=== PATIENT | male | born 1950 | race Caucasian/White ===

== ENCOUNTER 2024-03-29 09:35 | Outpatient (REF) | payer MEDICARE, SELFPAY ==
--- NOTE | ~2024-03-29 | US_ITS ---
EXAMINATION: US ABDOMEN LIMITED CLINICAL INFORMATION: Abdominal bulge, rule out hernia. COMPARISON: None available. TECHNIQUE: Real-time imaging of the abdominal wall. FINDINGS: With Valsalva maneuver there is separation of the rectus abdominal muscles is seen along the anterior abdominal wall with the largest separation measuring 1.7 cm. US/US abdomen limited IMPRESSION: With Valsalva maneuver there is separation of the rectus abdominal muscles is seen along the anterior abdominal wall with the largest separation measuring 1.7 cm.
== END 2024-03-29 09:36 | disposition home or self-care (01) ==
LOC: HO.US 09:35
PROVIDERS: Visit Provider Internal Medicine
DX: M62.08 Separation of muscle (nontraumatic), other site (principal)
CPT/HCPCS: 76705